=== PATIENT | female | born 1950 | race Caucasian/White ===

== ENCOUNTER 2016-07-30 14:04 | Inpatient (IN) | payer BC ==
[2016-07-26 20:57] LABS: BASOPHILS 0.4 %; BASOPHILS ABSOLUTE 0.04 10/3/uL (0.0-0.16); EOSINOPHILS 2.5 %; EOSINOPHILS ABSOLUTE 0.23 10/3/uL (0.0-0.53); HEMATOCRIT 37.2 % (36.0-48.0); HEMOGLOBIN 11.7 g/dL (12.0-16.0); IMMATURE GRANULOCYTES 0.1 %; IMMATURE GRANULOCYTES ABSOLUTE 0.01 10/3/uL (0.0-0.11); LYMPHOCYTES 21.7 %; LYMPHOCYTES ABSOLUTE 2.02 10/3/uL (0.67-4.30); MEAN CORPUS HGB CONC 31.5 g/dL (32.0-36.0); MEAN CORPUSCULAR HEMOGLOB 30.1 pg (26.0-34.0); MEAN CORPUSCULAR VOLUME 95.6 fL (80-100); MEAN PLATELET VOLUME 10.4 fL (9.2-13.0); MONOCYTES 6.3 %; MONOCYTES ABSOLUTE 0.59 10/3/uL (0.21-1.20); NEUTROPHILS ABSOLUTE 6.42 10/3/uL (2.02-8.40); PLATELET COUNT 275 10/3/uL (150-400); RED CELL COUNT 3.89 10/6/uL (4.0-5.6); WHITE BLOOD CELLS 9.3 10/3/uL (4.5-10.5)
[2016-07-26 20:58] LABS: MANUAL DIFF NO %
[2016-07-26 21:03] LABS: PROTIME (NOT ORD) 12.6 SEC (12.0-14.5)
[2016-07-26 21:16] LABS: A/G RATIO 1.4 (0.7-1.9); ALBUMIN 3.9 G/DL (3.5-5.0); BUN (BLOOD UREA NITROGEN) 19 MG/DL (6-23); CALCIUM, SERUM 9.4 MG/DL (8.5-10.4); CHLORIDE, SERUM 108 MMOL/L (96-112); CO2 (CARBON DIOXIDE) 25 MMOL/L (24-34); CREATININE 0.99 MG/DL (0.55-1.02); GFR AFRICAN AMERICAN 68 ML/MIN (>=60); GFR NON AFRICAN AMERICAN 59 ML/MIN (>=60); GLOBULIN 2.8 G/DL (2.5-4.1); GLUCOSE, SERUM 147 MG/DL (60-99); POTASSIUM, SERUM 4.2 MMOL/L (3.5-5.3); SGOT(AST) 18 U/L (5-40); SGPT(ALT) 39 U/L (5-65); SODIUM, SERUM 143 MMOL/L (135-148); TOTAL BILIRUBIN 0.9 MG/DL (0-1.2); TOTAL PROTEIN 6.7 G/DL (6.0-8.5)
[2016-07-26 21:17] LABS: ALKALINE PHOSPHATASE 145 U/L (45-117)
[2016-07-26 21:28] LABS: ASCORBIC ACID (UR NOT ORDER) NEG (NEG); BILIRUBIN, URINE NEGATIVE (NEG); KETONE, URINE NEGATIVE (NEG); LEUKOCYTE ESTERASE(NOT OR NEG (NEG); WBC (NOT ORDERED) (RFLEX) 1 (0-5)
--- NOTE | ~2016-07-30 | OP ---
Record Of Operation [facility] [address] [place]. 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 PROCEDURE: Left total knee revision arthroplasty and partial patellectomy. SURGEON: Gabriela Rios M.D. FORMING FIXER: See chart. INDICATIONS: A 65-year-old female with severe pain, incapacity, and inability to walk with a failed left total knee arthroplasty with multiple fracture fragments of the patella and obviously the loose patellar component. I did not feel this would be reconstructible, I would recommend a probable patellectomy. I had also discussed with the possibility of knee and revise all components which became much more obvious once the knee was opened and was seen how malrotated the tibial component was. It was because of this the patellar tendon was subluxed and made it impossible for her to walk basically. PROCEDURE: The patient was taken to the operating room and placed supine on the table in normal fashion without incident. General anesthetic was induced per the anesthesiologist. The patient carefully positioned, padded, prepped, draped in normal sterile fashion. Left lower extremity was exsanguinated, tourniquet inflated to 350. Sharp dissection was made through the midline, longitudinal scar electrocautery through the fascia with quad splitting approach was carried out. The patella was subluxed. Benign-appearing fluid was sent for cultures and Gram stain. The failed patellar component were so loose that I grabbed it and pulled it out. The femoral and tibial components were easily removed with flexible osteotomes. Cement was meticulously debrided. Sequential reamers were used in the femur and tibia. Intramedullary guides used to cut the proximal tibia and distal femur. Ruler to verify flexion and extension balance. The remaining cuts were made in the distal femur and trial components in place. There was now excellent medial and lateral balance and excellent flexion and extension balance. The patella was basically in 4 large fragments, three of which I took out, one was still in the midportion of the extensor mechanism. By rotating the tibia back to where it belonged, I was able to get the 10 extensor mechanism back centralized over the femoral component, with extensive lateral releasing. Once it was rebalanced, it was not a reconstructible patellar component any further. All surfaces were copiously irrigated with pulsatile lavage. Vacuum-mixed cement premixed with antibiotic was pressurized in the tibia. Tibial component placed, impacted, and excess cement removed. Cement was pressurized in the femur and placed on the posterior runners of the femoral component which was placed, impacted, and excess cement removed. Knee brought out in extension on a trial spacer. Once all cement was hardened, the knee was taken through range of motion. Further extruded cement was removed with a small osteotome. The actual insert Record Of Operation [address] [address] NAME: KULDEEP ESCOTO : 46 STATUS : ADM IN PAT#: [id number] AGE: 65 ADM/REG DATE : 07/30/16 MR#: [id number] REPORT SERV DATE: 08/01/16 DICTATED BY: ABRAHAM RIOS DATE: 07/31/16 REPORT STATUS : Draft TRANSCRIBED BY: MODL DATE: 07/31/16 was then placed, impacted, and knee closed in a layered fashion over medium ConstaVac drain superolaterally. The wound was dressed sterilely. The patient awakened and taken to the postanesthesia care unit without incident. COMPLICATIONS: None. SPECIMENS: None. ESTIMATED BLOOD LOSS: Trace. WTB/MODL Gabriela Rios M.D. / [id number] CC: Dorita Calvo MD
--- NOTE | ~2016-07-30 | DS ---
Discharge Summary [facility] [address] [place]. [address] NAME: KULDEEP ESCOTO : 46 STATUS : DIS IN PAT#: [id number] AGE: 65 ADM/REG DATE : 07/30/16 MR#: [id number] REPORT SERV DATE: 08/10/16 DICTATED BY: ABRAHAM RIOS DATE: 08/09/16 REPORT STATUS : Draft TRANSCRIBED BY: MODL DATE: 08/09/16 Data Collection from hospitalization DISCHARGE DIAGNOSES: 1. 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 2. Hypertension. 3. Type 2 diabetes mellitus. 4. Obesity. 5. Bipolar disorder. 6. Obstructive sleep apnea. 7. Hypothyroidism. 8. Chronic pain. CONSULTATIONS: None. PROCEDURES PERFORMED: Left total knee revision arthroplasty and partial patellectomy on 07/30/2016. PATHOLOGY: Bone and soft tissue, left knee, orthopedic hardware, chronic reactive changes. Bone marrow - 40%-60% cellular with trilineage hematopoiesis. MEDICATIONS: Vitamin C 1000 mg daily, aspirin 81 mg every morning, Lipitor 40 mg daily, Lotensin one tablet daily, Wellbutrin XL 150 mg daily, vitamin D3 5000 units daily, Klonopin 1 mg twice a day, Cymbalta 120 mg every morning, Neurontin 600 mg twice a day, [place] 5/325 one to two tablets every four to six hours as needed, Lantus 40 units subcutaneously at bedtime, levothyroxine 50 mcg every morning, lithium carbonate 150 mg at bedtime, Eskalith 300 mg twice a day, Glucophage 1000 mg with breakfast and supper, Centrum tablets one tablet once daily, Mirapex 1.5 mg as needed, ICaps two tablets daily, fiber tablets three tablets daily, and Coumadin 5 mg daily. CONDITION AT DISCHARGE: Stable. DISPOSITION: The patient was discharged home on an 1800-calorie diabetic diet with activities as instructed. She would follow up with me on 08/13/2016. She would follow up at [facility] on 08/05/2016, and would follow up at [facility] for lab work on 08/05/2016. HOSPITAL COURSE: This is a 65-year-old female who was seen for recurrent left knee pain. She had severe pain and incapacity with inability to walk with failed left total knee arthroplasty with multiple fracture fragments of the patella and obviously the loose patellar component. It was not felt that this would be reconstructible. Treatment options were discussed and it was elected to proceed with surgical intervention. She was admitted to the hospital at this time for further evaluation and treatment. Upon admission, she was taken to the operating room where she underwent the above-mentioned procedure. She tolerated this well, and there were no complications. On postop day #1, hinged knee brace was in place. Lipitor was continued. Physical therapy was going to Discharge Summary [address] [address] NAME: KULDEEP ESCOTO : 46 STATUS : DIS IN PAT#: [id number] AGE: 65 ADM/REG DATE : 07/30/16 MR#: [id number] REPORT SERV DATE: 08/10/16 DICTATED BY: ABRAHAM RIOS DATE: 08/09/16 REPORT STATUS : Draft TRANSCRIBED BY: MODFrancoise DATE: 08/09/16 began. She was to use her home CPAP. She was evaluated by Occupational and Physical Therapy. On postop day #2, she continued to do well. ROSMERY hose were in place. She was encouraged to mobilize with Physical Therapy. Wellbutrin, Klonopin, and lithium were continued as well as Synthroid, Lipitor, benazepril, and hydrochlorothiazide. She was continued on her Levemir and sliding scale insulin. Discharge planning was performed. On 08/02/2016, she continued to do well. Discharge instructions were given. Due to her improved and stable condition, she was discharged home with the above-stated instructions. Information collected by: Kait Landaverde I submit the above information as my discharge summary. TG/MODFrancoise Gabriela Rios M.D. / [id number] CC: Dorita Calvo MD
[~2016-07-30 14:04] MED LIST: ASAB PO; BENAZEPRIL PO; CENTRUM PO; CYMBALTA60 PO; ESKALITH PO; FIBER TAB PO; FIBERCON PO; GLUCOPHAGE1000 MG PO; GLUCPH PO; ICAPS LUTEIN PO; KLONO1 PO; LANTUS SC; LEVEMIR SC; LEVOTHYROXIN50 MCG PO; LIPITOR40 PO; LITH150 PO; LITHIUM CARB300 MG OR; LOTE40 PO; LOTENSIN HCT1 TA2 PO; MEVACOR40 MG PO; MIRAPEX1.5 MG PO; NABUMETONE750 MG PO; NAP500 PO; NEUR600 PO; NORCO1 TA1 PO; NORV5 PO; PRILO PO; PROTONIX PO; RELA5 PO; RELEFEN PO; ULTRAM50 PO; VITAMIN B PO; VITAMIN D1000 UNI1 PO; VITAMIN D31000 UNIT PO; VITC500 PO; WELCHOL 625 MG625 MG PO; WELLXL150 PO
[2016-07-31 04:56] LABS: INTERNATIONAL NORMAL RATI 1.1 UNITS (-); PROTIME (NOT ORD) 14.2 SEC (12.0-14.5)
[2016-07-31 05:01] LABS: HEMATOCRIT 27.3 % (36.0-48.0); HEMOGLOBIN 8.8 g/dL (12.0-16.0)
[2016-07-31 05:04] LABS: BUN (BLOOD UREA NITROGEN) 19 MG/DL (6-23); CHLORIDE, SERUM 110 MMOL/L (96-112); CREATININE 1.11 MG/DL (0.55-1.02); GFR AFRICAN AMERICAN 60 ML/MIN (>=60); GFR NON AFRICAN AMERICAN 51 ML/MIN (>=60); GLUCOSE, SERUM 159 MG/DL (60-99); POTASSIUM, SERUM 4.3 MMOL/L (3.5-5.3); SODIUM, SERUM 143 MMOL/L (135-148)
[2016-07-31 05:06] LABS: CALCIUM, SERUM 8.3 MG/DL (8.5-10.4); CO2 (CARBON DIOXIDE) 30 MMOL/L (24-34)
[2016-08-01 08:15] LABS: BASOPHILS 0.3 %; BASOPHILS ABSOLUTE 0.02 10/3/uL (0.0-0.16); EOSINOPHILS 1.4 %; EOSINOPHILS ABSOLUTE 0.11 10/3/uL (0.0-0.53); HEMATOCRIT 26.8 % (36.0-48.0); HEMOGLOBIN 8.6 g/dL (12.0-16.0); IMMATURE GRANULOCYTES 0.3 %; IMMATURE GRANULOCYTES ABSOLUTE 0.02 10/3/uL (0.0-0.11); LYMPHOCYTES 16.8 %; LYMPHOCYTES ABSOLUTE 1.34 10/3/uL (0.67-4.30); MEAN CORPUS HGB CONC 32.1 g/dL (32.0-36.0); MEAN CORPUSCULAR HEMOGLOB 30.7 pg (26.0-34.0); MEAN CORPUSCULAR VOLUME 95.7 fL (80-100); MEAN PLATELET VOLUME 9.6 fL (9.2-13.0); MONOCYTES 10.8 %; MONOCYTES ABSOLUTE 0.86 10/3/uL (0.21-1.20); NEUTROPHILS 70.4 %; NEUTROPHILS ABSOLUTE 5.61 10/3/uL (2.02-8.40); PLATELET COUNT 220 10/3/uL (150-400); RBC DISTRIBUTION WIDTH 14.4 % (12.0-16.0)
[2016-08-01 08:18] LABS: INTERNATIONAL NORMAL RATI 1.3 UNITS (-); MANUAL DIFF NO %
[2016-08-01 08:19] LABS: PROTIME (NOT ORD) 16.4 SEC (12.0-14.5)
[2016-08-01 08:23] LABS: BUN (BLOOD UREA NITROGEN) 13 MG/DL (6-23); CALCIUM, SERUM 8.8 MG/DL (8.5-10.4); CHLORIDE, SERUM 106 MMOL/L (96-112); CO2 (CARBON DIOXIDE) 29 MMOL/L (24-34); CREATININE 0.96 MG/DL (0.55-1.02); GFR AFRICAN AMERICAN 71 ML/MIN (>=60); GFR NON AFRICAN AMERICAN 61 ML/MIN (>=60); GLUCOSE, SERUM 114 MG/DL (60-99); POTASSIUM, SERUM 3.9 MMOL/L (3.5-5.3); SODIUM, SERUM 140 MMOL/L (135-148)
[2016-08-02 06:11] LABS: HEMATOCRIT 28.5 % (36.0-48.0); HEMOGLOBIN 9.1 g/dL (12.0-16.0)
[2016-08-02 06:21] LABS: INTERNATIONAL NORMAL RATI 1.5 UNITS (-); PROTIME (NOT ORD) 17.5 SEC (12.0-14.5)
[2016-08-02] MEDS ORDERED: NORCO1 TA1 PO (12:38)
[2016-08-02] MEDS ORDERED: C5 PO (12:39)
== END 2016-08-02 16:11 | disposition home or self-care (01) | DRG 467 ==
LOC: SDC/OF 14:04 → 3SO 21:20
PROVIDERS: Nurse Practitioner; Specialist
PROC: 0SPD0JZ Removal of Synthetic Substitute from Left Knee Joint, Open Approach (ICD-10-PCS; 2016-07-30)
PROC: 0QBF0ZZ Excision of Left Patella, Open Approach (ICD-10-PCS; 2016-07-30)
PROC: 0SRD0J9 Replacement of Left Knee Joint with Synthetic Substitute, Cemented, Open Approach (ICD-10-PCS; principal; 2016-07-30 15:15)
DX: T84.093A Other mechanical complication of internal left knee prosthesis, initial encounter (principal); S82.042A Displaced comminuted fracture of left patella, initial encounter for closed fracture; D62 Acute posthemorrhagic anemia; I10 Essential (primary) hypertension; G62.9 Polyneuropathy, unspecified; E11.9 Type 2 diabetes mellitus without complications; E03.9 Hypothyroidism, unspecified; E78.5 Hyperlipidemia, unspecified; G47.33 Obstructive sleep apnea (adult) (pediatric); M79.7 Fibromyalgia
CPT/HCPCS: 36415; 80048; 80053; 81001; 82962; 85014; 85018; 85025; 85610; 86850; 86900; 86901; 87015; 87070; 87075; 87102; 87116; 87205; 87641; 88300; 88304; 88311; 93005; 94002; 94660; 94770; 97110-GP; 97116-GP; 97161-GP; 97165-GO; 97530-GP; 97535-GO; A9270-GY; C1776; J0330; J1580; J1885; J2250; J2274; J2405; J2795; J3010; J3370